=== PATIENT | male | born 1995 | race African-American/Black ===

== ENCOUNTER 2018-05-18 06:29 | Emergency (ER) | payer OTHER ==
[2018-05-18] MEDS ORDERED: Lidocaine 1% (PF) 30 ML VIAL ONE (07:21)
== END 2018-05-18 08:50 | disposition home or self-care (01) ==
LOC: ERS 06:29
DX: S01.511A Laceration without foreign body of lip, initial encounter (principal); J45.909 Unspecified asthma, uncomplicated; Y04.0XXA Assault by unarmed brawl or fight, initial encounter
CPT/HCPCS: 12011; J2001